=== PATIENT | male | born 1985 | race Caucasian/White ===

== ENCOUNTER 2016-10-05 18:24 | Emergency (ER) | payer OTHER ==
[~2016-10-05] VITALS: Ht 180.3 cm; Wt 75.0 kg
[2016-10-05 18:34] VITALS: BP 176/95; PULSE 64; RESP 14; O2SAT 99
--- NOTE | 2016-10-05 18:51 | ED.REPORT ---
HPI-General Illness Date of Service Oct 05, 2016 ED Provider: Syed Brink PA-C Anup is an otherwise healthy 30-year-old male presenting to the emergency department after a blood exposure. Patient works as a cdl service technician, was assisting on a recent trauma treated in this department. Patient reports being supposed to blood droplets, with possibly some in his mouth. He reports wearing eye miller and noting blood on them after the rescue. He is vaccinated against hepatitis A and B. He denies other complaints Nursing Notes Stated Complaint: BLOOD EXPOSURE Chief Complaint: Post Exposure Body Fluids Nursing Notes Reviewed: Yes Allergies: Coded Allergies: amoxicillin (Verified Allergy, Severe, Rash,Itching,, 10/05/16) General Time Seen by MD: 18:39 Chief Complaint Other (blood exposure) Past Medical History Past Medical History Denies Review of Systems General: Denies fever, chills, malaise. HEENT: Denies congestion, headache, sore throat. Respiratory: Denies dyspnea, cough, shortness of breath, wheezing. Cardiovascular: Denies chest pain, palpitations. Gastrointestinal: Denies vomiting, diarrhea, abdominal pain. Genitourinary: Denies frequency, urgency, dysuria, hematuria. Otherwise as noted in HPI. Physical Exam General: Well appearing, well developed, well nourished, no acute distress. Head: Atraumatic, normocephalic. Eyes: No scleral icterus or injection. No discharge. Vision grossly intact. ENT: Voice clear, hearing grossly intact. Respiratory: No respiratory distress, no increased work of breathing. Speaks in complete sentences. Skin: Warm and dry. Neurological: Grossly nonfocal. Psychological: alert and oriented. Speech appropriate, linear and logical. Behavior appropriate. Vital Signs Vital Signs Date Time Temp Pulse Resp B/P Pulse Ox O2 Delivery O2 Flow Rate FiO2 10/05/16 18:34 36.8 64 14 176/95 99 Room Air Normal Interpretation & Diagnostics Lab Results Interpretation Test 10/05/16 19:27 Re-Eval/Medical Decision Med Decision/Clinical Course Otherwise healthy 30-year-old fibrinogen emergency department after being exposed to blood during a rescue. Exposure was droplets in his mouth most likely. He is initiating an L&I claim. Baseline blood testing is initiated. Blood work patent panel was performed on the patient this is negative for HIV and hepatitis B however antibody was weakly positive. This is being further evaluated with viral load testing. HCV quantitation is pending and expected in approximately one week. If this is negative no further action is necessary. If this is positive, this patient will require serial testing and follow-up with Dr. Palencia of infectious disease. The source patient's EKG number is [id number], his initials [email or web address]. I discussed this with the patient, he plans to follow up with the emergency department in approximately one week. Discharge & Departure Primary Impression: Exposure to blood Disposition: Home Discharge Condition All VS Reviewed: Yes Condition: Stable Additional Instructions: We have initiated an L&I claim related to your blood exposure. You will be notified of the results of your blood tests. Please contact the emergency department in approximately one week to follow up on the results of the source patient's testing. Referrals: OTHER,PHYSICIAN EDSupervising Provider for APC: Robbie Arriaga Seth PA-C Oct 05, 2016 18:51
== END 2016-10-05 19:42 | disposition home or self-care (01) ==
LOC: SED 18:24
DX: Z77.21 Contact with and (suspected) exposure to potentially hazardous body fluids (principal); X58.XXXA Exposure to other specified factors, initial encounter; Y93.F9 Activity, other caregiving; Y92.410 Unspecified street and highway as the place of occurrence of the external cause; Y99.0 Civilian activity done for income or pay; Z88.1 Allergy status to other antibiotic agents
CPT/HCPCS: 36415; 86706; 87340; 99283; G0433